=== PATIENT | female | born 1945 | race Caucasian/White ===

== ENCOUNTER 2017-05-25 12:18 | Emergency (ER) | payer OTHER ==
[2017-05-25 12:22] VITALS: BP 146/93; BMI 42.5
[2017-05-25] MEDS ORDERED: DEMEROL INJ IM ONE (12:31)
[2017-05-25] MEDS ORDERED: PHENERGAN INJ 25 MG IM ONE (12:31)
--- NOTE | 2017-05-25 12:38 | DR.EXTPAIN ---
HPI - Time seen Time seen: 12:32 - PCP Primary Care Physician: Michelle ROCK - Complaint/Symptoms Chief Complaint Doctor Comments: Patient complains of lower back pain that radiates down her left leg for the past 24 hours getting worst today. States she had back surgery in [place] with Dr. Berg who has an office here and she is to see him next week but the pain was to bad today. States she had back surgery 26 Dec 2016 and did good until March 2017. She denies any recent trauma. States the pain is 10 of 10. States she had CT and MRI last week in [place] for him and she is to take the disc to her appointment next week but she left the disk at home. states she is allergic to Prednisone but has taken Medrol Dose raman without problems. she denies dysuria, hematuria, fever, chills, nausea or vomiting. Chief Complaint:: PT. C/O LEFT LOWER BACK PAIN THAT RADIATES DOWN LEFT HIP AND LEG. PAIN BEGAN YESTERDAY. PT. HAD BACK SURGERY DEC. 2016. DENIES INJURY. - Nurses notes reviewed Nurses Notes Review: Yes - Source History Provided: Patient - Mode of arrival Mode of Arrival: Ambulatory - Timing Onset of Chief Complaint: 05/24/17 - Context History of: None - Associated signs and symptoms Associated Signs and Symptoms: Pain PMH - PMH Past Medical History: Yes Past Medical History: Dyslipidemia, Hypertension Past Surgical History: Yes Surgical History: , Joint Replacement, Other Past Surgical History Comment: BACK SURGERY, CARPAL TUNNEL - Family History History of Family Medical Conditions: Yes Family Medical History: Diabetes Mellitus, [place], Hypertension - Social History Does patient currently use any type of tobacco product: No Have you used tobacco products in the last 12 months: No Type of Tobacco Use: None Does any household member use tobacco: No Alcohol Use: None Do you use any recreational Drugs:: No Lives With: Family Lives Where: Home - infectious screening In the last 2 months have you had wt loss of >10#?: NO Have you had fever, night sweats or hemotysis?: No Have you traveled outside the country in the last 6 months?: No Isolation: Standard ROS - Review of Systems Constitutional: No Symptoms Reported. negative: See HPI, Chills, Diaphoresis, Fever, Malaise, Weakness, Irritable, Fatigue, Loss of Appetite, Other Eyes: No Symptoms Reported ENTM: No Symptoms Reported. negative: See HPI, Ear Pain, Ear Discharge, Pulling on Ears, Hearing Loss, Nose Pain, Nose Discharge, Epistaxis, Nose Congestion, Mouth Pain, Mouth Swelling, Loose Teeth, Drooling, Throat Pain, Throat Swelling, Ear Foreign Body Respiratoy: No Symptoms Reported Cardiovascular: No Symptoms Reported. negative: See HPI, Chest Pain, Edema, Palpitations, Syncope, Cyanosis, Skin Mottling, Other Gastrointestinal/Abdominal: No Symptoms Reported. negative: See HPI, Abdominal Pain, Constipation, Diarrhea, Nausea, Vomiting, Food Intolerance, Other Genitourinary: No Symptoms Reported Neurological: No Symptoms Reported, Problems Walking (lower back pain ). negative: See HPI, Anxiety, Depressed, Emotional Problems, Headache, Numbness, Paresthesia, Pre-existing Deficit, Seizure, Tingling, Tremors, Weakness, Dizziness, Speech Problem, Other Musculoskeletal: No Symptoms Reported, Back Pain Integumentary: No Symptoms Reported. negative: See HPI, Change in Color, Change in Hair/Nails, Dryness, Lesions, Lumps, Rash, Itching, Wound, Bruises, Juandice, Other Hematologic/Lymphatic: No Symptoms Reported. negative: See HPI, Anemia, Blood Clots, Easy Bleeding, Easy Bruising, Swollen Glands, Lymphadenopathy, Other Endocrine: No Symptoms Reported. negative: See HPI, Excessive Sweating, Flushing, Intolerance to Cold, Intolerance to Heat, Increased Hunger, Increased Thirst, Increased Urine, Unexplained Weight Gain, Unexplained Weight Loss, Failure to Thrive, Decreased Appetite, Other Psychiatric: No Symptoms Reported. negative: See HPI, Anxiety, Depression, Hallucinations, Excessive crying, Suicidal, Other PE - Vital Signs Vitals: Temperature 98 F Pulse Rate 94 Respiratory Rate 20 Blood Pressure [Left Arm] 105/54 Blood Pressure [Right Arm] 104/76 Blood Pressure [Right Radial 101/52 Artery] Blood Pressure 146/93 O2 Sat by Pulse Oximetry 96 - General Limitations: No Limitations General Appearance: Alert, In Distress (moderate) - Head Head Exam: Normal Inspection, Atraumatic, Normocephalic - Eyes Eye exam: Normal Appearance, PERRL, EOMI. negative: Scleral Icterus, Conjunctival Injection, Nystagmus, Miosis, Mydrasis, Periorbital Swelling, Periorbital Tenderness, Other - ENT ENT Exam: Normal Exam, Normal Oropharynx, Normal External Ear Exam, TM's Normal Bilaterally. negative: Mucous Membranes Moist, Mucous Membranes Dry, Other - Neck Neck Exam: Normal Inspection, Full ROM, Trachea Midline. negative: Tenderness, Meningismus, Lymphadenopathy, Thyromegaly, Other - Chest Chest Inspection: Normal Inspection, Symmetric Chest Wall Rise. negative: Tenderness, Rash, Abscess, Other - Respiratory Respiratory Exam: Normal Lung Sounds Bilat. negative: Accessory Muscle Use, Chest Wall Tenderness, Prolonged Expiratory Phase, Respiratory Distress, Stridor , Other Respiratory Exam: Bilateral Clear to Auscultation - Cardiovascular Cardiovascular Exam: Regular Rate, Normal Rhythm, Normal Heart Sounds. negative : Bradycardia, Tachycardia, Irregular Rhythm, Systolic Murmur, Diastolic Murmur , Rubs, Gallop, Clicks, JVD, +S1, +S2, +S3, +S4, Other - Abdominal Exam Abdominal Exam: Normal Inspection, Normal Bowel Sounds, Soft. negative: Distention, Tenderness, Guarding, Rebound, Rigidity, Dimnished Bowel Sounds, Hyperactive Bowel Sounds, Hypoactive Bowel Sounds, Organomegaly, Trauma, Incision, Ascites, Mass, Bruit, Pulsatile Mass, Hernia, Other Abdominal Tenderness: negative: RUQ, RLQ, LUQ, LLQ, Epigastrium, Suprapubic, Diffuse, Mild, Moderate, Severe, Other - Extremities Extremities Exam: Normal Inspection, Full ROM, Tenderness (left hip tender), Normal Capillary Refill - Upper Extremities Shoulder Exam: Normal Inspection, Full ROM. negative: Tenderness, Swelling, Abrasion, Laceration, Ecchymosis, Deformity, Crepitus, Dislocation, Erythema, Tenderness over AC Joint, Other Arm Exam: Normal Inspection, Full ROM. negative: Tenderness, Swelling, Abrasion , Laceration, Ecchymosis, Deformity, Crepitus, Erythema, Other Elbow Exam: Normal Inspection, Full ROM. negative: Tenderness, Swelling, Abrasion, Laceration, Ecchymosis, Deformity, Crepitus, Dislocation, Erythema, Effusion, Pain w/ pronation, Pain w/ Spuination, Tenderness over Radial Head, Other Forearm Exam: Normal Inspection, Full ROM. negative: Tenderness, Swelling, Abrasion, Laceration, Ecchymosis, Deformity, Crepitus, Erythema, Dislocation, Other Hand Exam: Normal Inspection, Full ROM. negative: Tenderness, Swelling, Abrasion, Laceration, Ecchymosis, Skin Avulsion, Deformity, Crepitus, Erythema, Dislocation, Amputation, Nail Avulsion, Subungual Hematoma, Other Neuromotor Exam: Normal Exam Neurosensory Exam: Normal Exam Hand Tendon Exam: negative: Flexor Digitorium Profundus (Location), Flexor Digitorium Superficialis (Location), Extensor Tendon (Location), Other Upper Ext. Vascular Exam: Capillary Refill, Radial Pulse (normal) - Lower Extremities Hip/Pelvis Exam: Normal Inspection, Full ROM. negative: Tenderness, Swelling, Abrasion, Laceration, Ecchymosis, Deformity, Crepitus, Dislocation, Erythema, External Rotation, Internal Rotation, Shortening, Pelvis Stable, Other Upper Leg Exam: Normal Inspection, Full ROM. negative: Tenderness, Swelling, Abrasion, Laceration, Ecchymosis, Deformity, Crepitus, Dislocation, Erythema, Other Knee Exam: Normal Inspection, Full ROM. negative: Tenderness, Swelling, Abrasion, Laceration, Ecchymosis, Deformity, Crepitus, Dislocation, Erythema, Effusion, Anterior Drawer Sign, Posterior Draw Sign, Pain with Valgus, Laxity with Valgus, Pain with Varus, Knee Extension Intact, Other Lower Leg Exam: Normal Inspection, Full ROM. negative: Tenderness, Swelling, Abrasion, Laceration, Deformity, Ecchymosis, Crepitus, Dislocation, Erythema, Palpable Cord, Homans' Sign, Achilles Tendon Intact, Other Ankle Exam: Normal Inspection, Full ROM. negative: Tenderness, Swelling, Abrasion, Laceration, Ecchymosis, Deformity, Crepitus, Dislocation, Erythema, Tenderness over talofibular lig, Anterior Draw Sign, Other Foot/Toe Exam: Normal Inspection, Full ROM. negative: Tenderness, Swelling, Abrasion, Laceration, Ecchymosis, Deformity, Crepitus, Dislocation, Erythema, Amputation, Puncture Wound, Foreign Body, Calcaneal Tenderness, Nail Avulsion, Other Neurovascular/Tendon Exam: Normal Capillary Refill, Normal 2-point discrimination Gait Exam: Observed & Limited by Pain, Antalgic (limping with left leg) - Back Back Exam: Normal Inspection, Full ROM, Tenderness (healed surgical scar with tenderness on palpation and movement), Paraspinal Tenderness, Vertebral Tenderness, (R) Sciatic Notch Tenderness - Neurological Neurological Exam: Alert, Oriented X3, CN II-XII Intact, Reflexes Normal. negative: Normal Gait (limping) - Psychiatric Psychiatric Exam: Normal Affect, Normal Mood. negative: Depressed, Agitated, Anxious, Flat Affect, Manic, Homicidal Ideation, Suicidal Ideation, Other - Skin Skin Exam: Warm, Dry, Intact, Normal Color Type of Lesion: negative: Rash, Abscess, Laceration, Foreign Body, Bite/Sting, Abrasion, Other Distribution: negative: Generalized, Involves Palms/Soles, Head, Face, Neck, Thorax, Chest, Back, Abdomen, Genitals, LUE, LLE, RUE, RLE, Other Description: negative: Size, Tenderness, Erythematous, Swelling, Macular, Papular, Vesicular, Blisters, Cofluent, Bullous, Petechial, Purpuric, Urticarial , Crusting, Discharge, Fluctuant, Indurated, Other ROR - Labs Reviewed Laboratory Results Reviewed?: Yes (all x-ray results reviewed and discussed with patient) - XRAY XRAY Interpreted by: Radiologist (CT lumbar spine: Retrolisthesis L3 on L4 secondary to degenerative disc disease. L4-L5 disc protrusion with severe spinal stenosis) - Diagnosis Discharge Problem: Degenerative disc disease at L5-S1 level, Degenerative disc disease, lumbar, retrolisthesis L3 on L4 - Discharge Plan Disposition: 01 HOME, SELF-CARE Condition: Stable Prescriptions: Acetaminophen/Codeine Tab [TYLENOL w/CODEINE #3 (300 MG/30 MG) *] 1 tab PO Q4- 6H PRN #30 tab PRN Reason: Pain Methylprednisolone Dosepak 4Mg [MEDROL DOSEPAK (4 mg tab x 21)] 1 raman PO ONCE # 1 raman - Follow ups/Referrals Follow ups/Referrals: Mikayla Rock [Primary Care Provider] - 3 days LOLA PINEDA [STAFF PHYSICIAN] - 3 days - Instructions Instructions: Degenerative Disk Disease, Spinal Stenosis, Back Pain, Adult, [id number]
[2017-05-25] MEDS ORDERED: PHENERGAN INJ 25 MG ONE (12:42)
[2017-05-25] MEDS ORDERED: DEMEROL INJ ONE (12:42)
--- NOTE | 2017-05-25 15:02 | CT ---
HISTORY: Low back pain, left hip pain Study: CT lumbar spine without contrast Comparison: None Technique: Axial non contrast images with coronal and sagittal reformats. Dose reduction procedures were used with MA/kv adjusted for body size. Findings: the patient is status post fusion with hardware fixing the spinous processes L2, L3, L4, L5. The donell kristel are osteopenic. There is slight retrolisthesis L2 on L3, L4 on L5. No compression fractures are identified. The pedicles, spinous processes, and posterior elements are intact. The SI joints and sa coni are intact. The disc levels are evaluated as follows: L1-2 level: There is disc degeneration with mild broad-based disc bulging. However the neural forami na are patent. Mild bilateral facet arthropathy is present. L2-3 level: There is disc degeneration with slight retrolisthesis L2 on L3 which contributes to late ral recess and foraminal narrowing bilaterally. L3-4 level: There is retrolisthesis L3 on L4 secondary to degenerative disc disease. This contribute s along with ligamentous hypertrophy and pedicular shortening to a relative spinal stenosis with mar ked lateral recess and foraminal narrowing bilaterally. L4-5 level: Broad-based disc protrusion contributes along with ligamentous hypertrophy and facet art hropathy to a relatively severe spinal stenosis with marked lateral recess and foraminal narrowing b ilaterally. L5-S1 level: There is a central and rightward disc protrusion which abuts the right S1 nerve root bu t does not cause displacement of the nerve root. The neural foramina are patent. Bilateral facet art hropathy is present. IMPRESSION: As above Reported By:
== END 2017-05-25 15:24 | disposition home or self-care (01) ==
LOC: ER 12:24
DX: M51.36 Other intervertebral disc degeneration, lumbar region (principal); M43.16 Spondylolisthesis, lumbar region
CPT/HCPCS: 72131; 96372; 99283; J2175; J2550

== ENCOUNTER → 2018-01-02 | Outpatient (CLI) | payer OTHER ==
--- NOTE | 2018-01-02 12:22 | MRI ---
Indication: Post laminectomy syndrome and back pain. Exam: MRI lumbar spine without contrast. Comparison: 05/25/2017 Technique: Routine multiplanar multi sequence imaging was performed through the lumbar spine without contrast. Comparison: 05/25/2017. Findings: There is moderate disc space narrowing throughout with diffuse moderate disc desiccation wh ich is most prominent along the thoracolumbar and mid lumbar region with prominent osteophytes throug hout. The conus is normal. No fracture or subluxation is seen. There are small central disc bulges at L1-2 and L2-3 causing mild anterior dural sac effacement. There is a small asymmetric broad-based pr otrusion at L3-4 lateralizing to the left causing mild anterior lateral dural sac effacement and mild neuroforaminal narrowing on the left. There is a small disc bulge at L4-5 causing mild dural sac eff acement. There are moderate hypertrophic changes of facet throughout with ligament flavum hypertrophy causing diffuse mild spinal stenosis. The paravertebral soft tissues are normal. There are focal are as of susceptibility artifact along the posterior elements from L2-3 through L5 consistent with metal lic surgical fixation devices with abnormal signal in the soft tissues extending into the subcutaneou s soft tissues posteriorly which appears to represent postop changes with no focal fluid collection o r mass identified in the area. Impression: Status post surgical fusion and placement of surgical fixation devices along the spinous processes fr om L2 through L5 which were seen on the prior CT scan or causing susceptibility artifact throughout . There are probable postop changes in the surrounding soft tissues and extending posteriorly to the s kin. No focal fluid collection or mass is seen. Moderate multilevel degenerative disc disease which is most prominent along the upper and mid lumbar region with no acute abnormality seen. Small asymmetric disc protrusion at L3-4 lateralizing to the left . Small central disc bulges L1-2, L2-3 , and L4-5 . Moderate osteoarthritic changes of facets throughout causing diffuse mild spinal stenosis. Reported By:
== END | disposition home or self-care (01) | DRG 552 ==
LOC: RAD 08:01
PROVIDERS: ATTEND Specialist
DX: M96.1 Postlaminectomy syndrome, not elsewhere classified (principal); Z98.1 Arthrodesis status; M51.26 Other intervertebral disc displacement, lumbar region
CPT/HCPCS: 72148